=== PATIENT | male | born 1990 | race Caucasian/White ===

== ENCOUNTER 2020-03-31 09:48 | Day surgery (SDC) | payer SELFPAY ==
[2020-03-31] VITALS (9 sets, daily range): BP systolic 98–132; BP diastolic 58–89
[~2020-03-31] VITALS: Ht 175 cm; Wt 77.0 kg
[2020-03-31] MEDS ORDERED: GLUCAGON EMERGENCY 1 MG/KIT IV ONE ×2 (10:00→10:45)
--- NOTE | 2020-03-31 10:06 | ED GI ---
General Chief Complaint: Foreign Body Stated Complaint: FOREIGN OBJECT IN THROAT Source of Information: Patient History of Present Illness Date Seen by Provider: Mar 31, 2020 Time Seen by Provider: 09:49 Initial Comments PT ARRIVES VIA POV FROM [facility] PT STATES HE WAS EATING TURKEY DOGS LAST NIGHT AROUND [phone] AND HAS HAD IT STUCK IN HIS "THROAT" SINCE THEN WATER WON'T GO DOWN PT IS ABLE TO SWALLOW SALIVA, BUT NOTHING ELSE NO PAIN, EXCEPT WHEN HE TRIES TO SWALLOW ANYTHING, AND THEN HAS PAIN IN HIS LOWER THROAT/UPPER CHEST AREA STATES HE HAS HAD SOME VERY MINOR EPISODES OF FOOD GETTING STUCK, BUT RESOLVES AFTER A COUPLE OF SECONDS AND HAS NEVER SOUGHT CARE FOR THIS PROBLEM NO COUGH OR DIFFICULTY BREATHING OR WHEEZING NO MEDICAL PROBLEMS AND DOES NOT TAKE ANY MEDICATIONS PCP: NONE Allergies and Home Medications Allergies Coded Allergies: No Known Drug Allergies (Unverified , 03/31/20) Home Medications No Active Prescriptions or Reported Meds Patient Home Medication List Home Medication List Reviewed: Yes Review of Systems Review of Systems Constitutional: no symptoms reported EENTM: See HPI Respiratory: No Symptoms Reported; Denies Cough, Denies Shortness of Air Cardiovascular: No Symptoms Reported Gastrointestinal: See HPI Past Brbiqbg-Vbptoy-Sxnzwj Hx Past Med/Social Hx: Reviewed and Corrections made Patient Social History Alcohol Use: Occasionally Uses Recreational Drug Use: No Smoking Status: Never a Smoker Recent Foreign Travel: No Contact w/Someone Who Travel: No Past Medical History Surgeries: No Respiratory: No Cardiac: No Neurological: No Genitourinary: No Gastrointestinal: No Musculoskeletal: No Endocrine: No HEENT: No Cancer: No Psychosocial: No Integumentary: No Blood Disorders: No Physical Exam Vital Signs Vital Signs - First Documented 03/31/20 09:50 Temp 37.0 Pulse 95 Resp 16 B/P (MAP) 150/87 (108) Pulse Ox 98 O2 Delivery Room Air Capillary Refill : Height/Weight/BMI Height: '" Weight: lbs. oz. kg; BMI Method: General Appearance: WD/WN, no apparent distress HEENT: PERRL/EOMI, normal ENT inspection, pharynx normal Neck: normal inspection Respiratory: normal breath sounds, no respiratory distress, no accessory muscle use Cardiovascular: regular rate, rhythm, no murmur Gastrointestinal: normal bowel sounds, non tender, soft Neurologic/Psychiatric: no motor/sensory deficits, alert, normal mood/affect, oriented x 3 Skin: normal color, warm/dry Progress/Results/Core Measures Results/Orders My Orders Orders - MARY BROWN DO Ed Iv/Invasive Line Start (03/31/20 09:55) Chest Pa/Lat (2 View) (03/31/20 09:55) Glucagon Emergency Kit (Glucagon Emergen (03/31/20 10:00) Glucagon Emergency Kit (Glucagon Emergen (03/31/20 10:45) Ed Iv/Invasive Line Start (03/31/20 11:34) Lactated Ringers (Lr 1000 Ml Iv Solution (03/31/20 11:34) Medications Given in ED Current Medications Medications Dose Ordered Sig/[place] Route Start Time Stop Time Status Last Admin Dose Admin Glucagon 1 mg ONCE ONCE IV 03/31/20 10:00 03/31/20 10:01 DC 03/31/20 10:12 1 MG Glucagon 1 mg ONCE ONCE IV 03/31/20 10:45 03/31/20 10:46 DC 03/31/20 10:40 1 MG Vital Signs/I&O 03/31/20 09:50 Temp 37.0 Pulse 95 Resp 16 B/P (MAP) 150/87 (108) Pulse Ox 98 O2 Delivery Room Air Progress Progress Note : Progress Note PT ABLE TO SWALLOW SALIVA, BUT UNABLE TO SWALLOW EVEN SIPS OF WATER--COMES BACK UP IMMEDIATELY GIVEN GLUCAGON X 2 DOSES WITH OUT IMPROVEMENT Diagnostic Imaging Comments CXR--NO ACUTE PROCESS, PER RADIOLOGIST REPORT AT 1015 Reviewed: Reviewed by Me Departure Communication (Admissions) 0959--CALLED DR. CONNELL--MESSAGE TO HIM VIA STAFF MEMBER. HE ADVISES TO GIVE GLUCAGON 1104--CALLED DR. CONNELL--MESSAGE TO HIM VIA STAFF MEMBER, HE ADVISES ADMIT TO FLOOR. MEDICATION ORDERS NOTED. 1130--DR. HARVEY WILL BE IN TO SEE PT AND TAKE TO ENDOSCOPY. 1135--DR. HARVEY HERE, CARE TURNED OVER TO HIM Impression Primary Impression: Esophageal obstruction due to food impaction Disposition: ADMITTED INPATIENT (TO ENDOSCOPY) Condition: Stable Admissions Decision to Admit Reason: Admit from ER (General) (TO ENDOSCOPY) Decision to Admit/Date: Mar 31, 2020 Time/Decision to Admit Time: 11:05 Departure-Patient Inst. Scripts No Active Prescriptions or Reported Meds MARY BROWN DO Mar 31, 2020 10:06
--- NOTE | 2020-03-31 10:12 | Diagnostic Imaging Report ---
Indication: Dysphagia PA and lateral chest Heart size and pulmonary vascularity are normal. Lungs are clear. There are no effusions or pneumothoraces. IMPRESSION: Negative chest Dictated by: Dictated on workstation # [id number]
--- NOTE | 2020-03-31 11:06 | NUR ---
PT UNABLE TO KEEP WATER DOWN AFTER 2ND DOSE OF GLUCAGON.
[2020-03-31] MEDS ORDERED: LACTATED RINGERS 1,000 ML IV ONE (11:34)
--- NOTE | 2020-03-31 11:37 | NUR ---
DR HARVEY HERE TO SEE PT.
--- NOTE | 2020-03-31 12:01 | NUR ---
ANESTHESIA HERE TO SEE PT.
[2020-03-31] MEDS ORDERED: DEXAMETHASONE 10 MG/ML (DECADRON) 1 ML VIAL ONE (12:25)
[2020-03-31] MEDS ORDERED: ONDANSETRON 4 MG/2 ML (SDV) Z0FRAN ONE (12:25)
[2020-03-31] MEDS ORDERED: LIDOCAINE PF 2% 5 ML (XYLOCAINE) VIAL ONE (12:25)
[2020-03-31] MEDS ORDERED: proPOfol 200 MG/20 ML (DIPRIVAN) VIAL IV ONE (12:25)
[2020-03-31] MEDS ORDERED: MIDAZOLAM 2 MG/2 ML (VERSED) VIAL ONE (12:26)
[2020-03-31] MEDS ORDERED: ROCURONIUM 10 MG/ML 5 ML SYRINGE IV ONE (12:26)
[2020-03-31] MEDS ORDERED: fentaNYL INJECTION 100 MCG/2 ML AMP ONE (12:26)
--- NOTE | 2020-03-31 12:31 | History & Physical-Surgical ---
History of Present Illness History of Present Illness Reason for visit/HPI CC: food bolus seen and evaluated in ED. Patient is a 29 year old male that was eating turkey hot dogs last night and had food lodged in esophagus. Can not get anything to pass including liquids. He throws them up after attempting. Nothing makes better. Trying to drink something makes worse he throws it up. Not really having any chest or abdomen discomfort. Patient states had previous difficulty at times but only lasted a minute and would pass the food through esophagus. Never had endoscopy before. Denies fever sweats chills shortness of breath or chest pain. Date of Admission T Date Seen by a Provider: Mar 31, 2020 Time Seen by a Provider: 12:27 I consulted on this patient on 03/31/20 12:25 Attending Physician Ledy Ashley DO Admitting Physician No,Local Physician Consult Allergies and Home Medications Allergies Coded Allergies: No Known Drug Allergies (Unverified , 03/31/20) Home Medications No Active Prescriptions or Reported Meds Patient Home Medication List Home Medication List Reviewed: Yes Past Ustaivv-Gmcziy-Womicr Hx Patient Social History Alcohol Use: Occasionally Uses Recreational Drug Use: No Smoking Status: Never a Smoker Recent Foreign Travel: No Contact w/Someone Who Travel: No Recent Infectious Disease Expo: No Recent Hopitalizations: No Seasonal Allergies Seasonal Allergies: No Surgeries History of Surgeries: No Respiratory History of Respiratory Disorde: No Cardiovascular History of Cardiac Disorders: No Neurological History of Neurological Disord: No Genitourinary History of Genitourinary Disor: No Gastrointestinal History of Gastrointestinal Di: No Musculoskeletal History of Musculoskeletal Dis: No Endocrine History of Endocrine Disorders: No HEENT History of HEENT Disorders: No Cancer History of Cancer: No Psychosocial History of Psychiatric Problem: No Integumentary History of Skin or Integumenta: No Blood Transfusions History of Blood Disorders: No Reviewed Nursing Assessment Reviewed/Agree w Nursing PMH: Yes Family Medical History Significant Family History: No Pertinent Family Hx Review of Systems Constitutional: No chills, No diaphoresis, No fever EENTM: no symptoms reported; No hearing loss, No ear pain Respiratory: No cough, No dyspnea on exertion Cardiovascular: no symptoms reported Gastrointestinal: see HPI; No abdominal pain; nausea, vomiting Genitourinary: No decreased output, No discharge Musculoskeletal: no symptoms reported; No back pain, No joint pain Skin: No change in color, No change in hair/nails Psychiatric/Neurological: Denies Anxiety, Denies Depressed, Denies Emotional Problems All Other Systems Reviewed Negative Unless Noted: Yes (Negative excepted noted.) Physical Exam Vital Signs Vital Signs - First Documented 03/31/20 09:50 Temp 37.0 Pulse 95 Resp 16 B/P (MAP) 150/87 (108) Pulse Ox 98 O2 Delivery Room Air Capillary Refill : Less Than 3 Seconds Height, Weight, BMI Height: '" Weight: lbs. oz. kg; 25.00 BMI Method: General Appearance: WD/WN, Other (uncomfortable) HEENT: PERRL/EOMI, Normal ENT Inspection Neck: Normal Inspection, Non Tender, Supple Respiratory: Chest Non Tender, No Accessory Muscle Use, No Respiratory Distress Cardiovascular: Regular Rate, Rhythm, No Edema Gastrointestinal: Non Tender, Soft; No Distended, No Guarding Rectal: Deferred Back: Normal Inspection, No CVA Tenderness Extremity: Normal Capillary Refill, Normal Range of Motion Neurologic/Psychiatric: Alert, Oriented x3, No Motor/Sensory Deficits, Normal Mood/Affect, choir leader II-XII Norm as Tested Skin: Normal Color, Warm/Dry Lymphatic: No Adenopathy Assessment/Plan Assessment/Plan Admission Diagonsis Food bolus esophagus nausea and vomiting Admission Status: Other (Same Day Surgery) Assessment/Plan Food bolus esophagus causing obstruction nausea and vomiting Patient explained risks and benefits of EGD he understands risks and benefits and wishes to proceed to OR for EGD> LEDY ASHLEY DO Mar 31, 2020 12:31
[2020-03-31] MEDS ORDERED: SUCCINYLCHOLINE INJ 100 MG/5 ML SYR ONE (12:35)
--- NOTE | 2020-03-31 13:01 | NUR ---
JESSIE NERI FROM [facility] HERE TO GET PT.
[2020-03-31] MEDS ORDERED: SEVOFLURANE (ULTANE) 15 ML INHAL SOLN ONE (13:37)
[2020-03-31] MEDS ORDERED: FAMO-119 PO (13:52)
--- NOTE | 2020-03-31 13:54 | Discharge Inst-Simple/Standard ---
Discharge Inst-Standard Discharge Medications New, Converted or Re-Newed RX: Transmitted to Pharmacy Patient Instructions/Follow Up Plan of Care/Instructions/FU: 2 weeks Dion Activity as Tolerated: Yes Discharge Diet: Regular Diet (soft diet then advance to regular over 2 days.) Other Inst to Patient Follow up Appt: Make appointment for 2 week. Instructions: Chew all food, slowly advance diet over next two days. Symptoms to Report: Appetite Changes, Extremity Discoloration, Numbness/Tingling, Swelling Increased, Bleeding Excessive, Eyesight Changes, Pain Increased, Urine Color Change, Constipation(Persistent), Fever over 101 degree F, Pain/Pressure in chest, Urinating Difficulty, Cough Up/Vomit Blood, Heart Beat Irreg/Pounding, Pain/Pressure in jaw, Vaginal Bleeding Increase, Cramps in feet or legs, Lightheadedness, Pain/Pressure in shoulder, Diarrhea(Persistent), Memory Changes Suddenly, Questions/Concerns, Weight gain consecutive days, Dizziness/Fainting, Nausea/Vomiting, Shortness of Breath, Weight gain over 2 pounds If questions or concerns contact your physician Or seek help at emergency department. LEDY HARVEY DO Mar 31, 2020 13:54
--- NOTE | 2020-03-31 13:55 | Progress Note-Post Operative ---
Post-Operative Progess Note Surgeon (s)/Child Care Supervisor (s) Surgeon LEDY HARVEY DO Child Care Supervisor: na Pre-Operative Diagnosis esophageal obstruction food bolus Post-Operative Diagnosis same Procedure & Operative Findings Date of Procedure 03/31/20 Procedure Performed/Findings egd c removal of esophageal food obstruction Anesthesia Type gen Estimated Blood Loss Estimated blood loss (mL): none Specimens/Packing Specimens Removed na LEDY HARVEY DO Mar 31, 2020 13:55
--- NOTE | 2020-03-31 15:09 | OPERATIVE REPORT ---
DATE OF SERVICE: 03/31/2020 PREOPERATIVE DIAGNOSIS: Esophageal food bolus causing esophageal obstruction. POSTOPERATIVE DIAGNOSIS: Esophageal food bolus causing esophageal obstruction. PROCEDURE: EGD with removal of food bolus. SURGEON: Ledy Ashley DO ANESTHESIA: General. ESTIMATED BLOOD LOSS: None. COMPLICATIONS: None. INDICATIONS: The patient is a 29-year-old male with eating hot dog yesterday, which got lodged in the distal esophagus. He has been throwing up and cannot keep anything down. He was explained risks and benefits of procedure and wished to proceed with procedure. Consent was signed in the chart. DESCRIPTION OF PROCEDURE: The patient was taken to the endoscopy suite, placed in supine position. He was intubated. Timeout was performed. Scope was inserted in mouth, down the esophagus and encountered a large chunk of hot dog. A Nuno Net was able to be advanced and was used to grab, placed the hot dog within it and was able to be evacuated. Scope was then reinserted in mouth, down the esophagus into the stomach and into the duodenum without difficulty. There were no polyps, masses or ulcerations within the duodenum. Scope was slowly retracted back into the stomach where it was further insufflated. No polyps, masses or ulcerations. Scope was retroflexed noting no other pathology. Scope was returned to its normal position, slowly withdrawn to the distal esophagus. No stricture evident. Scope and retracted without any difficulty. There are some slight erythematous changes around the distal portion of the esophagus likely due to pressure of the food bolus. Scope was then slowly retracted back until completely removed noting no other pathology. The patient tolerated procedure well without any complications. He was taken to recovery room in stable condition. RECOMMENDATIONS: The patient will be started on Pepcid 20 mg twice a day. He will follow up in the office in 2 weeks. Any issues before that be seen at that time. The patient was instructed to slowly increase diet as he tolerates over the next couple days. Job ID: [id number] DocumentID: [id number] Dictated Date: 03/31/2020 14:47:56 Supervisor [employer]ers Date: 03/31/2020 15:08:12 Dictated By: LEDY ASHLEY DO
== END 2020-03-31 15:35 | disposition home or self-care (01) ==
LOC: ER 09:49 → ENDO 11:41
PROVIDERS: ATTEND Surgery
DX: T18.128A Food in esophagus causing other injury, initial encounter (principal); K22.2 Esophageal obstruction; Z20.828 Contact with and (suspected) exposure to other viral communicable diseases
CPT/HCPCS: 43247; 71046; 87081; 99285; U0002; 87635; 96361; 96374

== ENCOUNTER → 2020-05-13 | Outpatient (CLI) | payer OTHER ==
[~2020-05-13] MED LIST: BARIUM for suspension 96% w/w (Vanilla Silq Medium Density) PO ONE; BARIUM for suspension 98% w/w (Vanilla Silq High Density) PO ONE; FAMO-119 PO
--- NOTE | 2020-05-13 10:59 | Diagnostic Imaging Report ---
INDICATION: Dysphagia. Patient had recent episode of food bolus being stuck in the esophagus with endoscopic retrieval. This study is performed for further evaluation. Patient ingested effervescent crystals as well as thin and thick barium and imaging of the esophagus was performed. 1 minute 5 seconds fluoroscopic time was utilized. There is a smooth contour to the esophagus. No esophageal mass or stricture was identified. No hiatal hernia or gastroesophageal reflux was demonstrated. IMPRESSION: Unremarkable esophagram. Dictated by: Dictated on workstation # [id number]
== END ==
LOC: RAD 10:07
PROVIDERS: ATTEND Surgery
DX: R13.10 Dysphagia, unspecified (principal)
CPT/HCPCS: 74220

== ENCOUNTER 2022-10-15 21:01 | Emergency (ER) | payer OTHER ==
[~2022-10-15] VITALS: Ht 180.3 cm; Wt 99.8 kg
[~2022-10-15 21:01] MED LIST changes: -BARIUM for suspension 96% w/w (Vanilla Silq Medium Density) PO ONE; -BARIUM for suspension 98% w/w (Vanilla Silq High Density) PO ONE
--- NOTE | 2022-10-15 22:19 | ED EENT ---
History of Present Illness General Chief Complaint: Oral/Throat Problems Stated Complaint: FEELS SOMETHING STUCK IN THROAT Nursing Triage Note: Pt reports feeling like food is stuck in throat. Pt states he noticed it around 2000 tonight, last food eaten was grapes at approximately 1400. Pt reports that he can drink normally at this time. Pt states this has happened before, pt has drank oil one time (which helped) and was hospitalized once for it. Pt states he has followed up with his PCP about this and was advised to lose weight. History of Present Illness Date Seen by Provider: Oct 15, 2022 Time Seen by Provider: 21:10 Initial Comments Patient is a 32-year-old male who presents to the emergency department for evaluation of feeling like something is stuck in his throat. Patient states he noticed the symptoms began at around 8:00 tonight. He last ate some grapes at approximately 2 PM. He states he is able to drink without issue and is able to swallow his saliva. He also was able to eat some crackers. Patient states this happens frequently but usually he is able to rest and the symptoms resolve on their own. He did have to be hospitalized and have an EGD once in the past where a hotdog was noted to be stuck in his esophagus. Patient states he has followed up with his PCP about this in the past. Patient denies any chest pain, shortness of air, or fever. Allergies and Home Medications Allergies Coded Allergies: No Known Drug Allergies (Unverified , 03/31/20) Patient Home Medication List Home Medication List Reviewed: Yes Famotidine (Pepcid) 20 Mg Tablet, 20 MG PO BID Prescribed by: LEDY HARVEY on 03/31/20 9222 Review of Systems Review of Systems Constitutional: no symptoms reported Eyes: No Symptoms Reported Ears: No Symptoms Reported Nose: no symptoms reported Mouth: no symptoms reported Throat: see HPI Respiratory: no symptoms reported Cardiovascular: no symptoms reported Gastrointestinal: no symptoms reported Musculoskeletal: no symptoms reported Skin: no symptoms reported Neurological: No Symptoms Reported Hematologic/Lymphatic: No Symptoms Reported Immunological/Allergic: no symptoms reported Past Yjxduqp-Ztaqdb-Cxmdyi Hx Patient Social History Tobacco Use?: No Substance use?: No Alcohol Use?: Yes Alcohol Frequency: Once in a while Pt feels they are or have been: No Immunizations Up To Date Influenza Vaccine Up-to-Date: No; Not Current First/Initial COVID19 Vaccinat: unkn Second COVID19 Vaccination Vasyl: unkn Seasonal Allergies Seasonal Allergies: No Past Medical History Surgery/Hospitalization HX: Pt has hx of food bolus Surgeries: No Respiratory: No Cardiac: No Neurological: No Genitourinary: No Gastrointestinal: No Musculoskeletal: No Endocrine: No HEENT: No Cancer: No Psychosocial: No Integumentary: No Blood Disorders: No Family Medical History No Pertinent Family Hx Physical Exam Vital Signs Vital Signs - First Documented 10/15/22 21:06 Temp 36.9 Pulse 85 Resp 16 B/P (MAP) 157/102 (120) Pulse Ox 99 O2 Delivery Room Air Height, Weight, BMI Height: '" Weight: lbs. oz. kg; 30.00 BMI Method: General Appearance: WD/WN, no apparent distress Neck: non-tender, full range of motion, supple, normal inspection Cardiovascular: regular rate, rhythm Respiratory: chest non-tender, lungs clear, normal breath sounds, no respiratory distress, no accessory muscle use Gastrointestinal: normal bowel sounds, non tender, soft Neurologic/Psychiatric: no motor/sensory deficits, alert, normal mood/affect, oriented x 3 Skin: normal color, warm/dry Progress/Results/Core Measures Results/Orders Vital Signs/I&O Blood Pressure Mean: 120 Progress Progress Note : Progress Note Patient is nontoxic and well-hydrated on exam. No adventitious lung sounds or increased work of breathing noted. Abdominal exam is reassuring without focal provocation of pain. I spoke with Dr. Andres who states he is happy to admit the patient overnight and scope him in the morning. He states the patient is also welcome to go home and follow-up outpatient tomorrow in the office. I gave patient these options and patient desired to be discharged home and to follow-up on an outpatient basis tomorrow. Patient was given a soda which he drank briskly and this seemed to give him some intermittent relief but he states the symptoms did return shortly thereafter. Will discharge home with recommendations for supportive care follow-up with Dr. Andres tomorrow. Return precautions for urgent symptomology discussed. Patient verbalized understanding. Departure Impression Primary Impression: Globus sensation Additional Impression: Food impaction of esophagus Qualified Codes: T18.128A - Food in esophagus causing other injury, initial encounter Disposition: HOME, SELF-CARE Condition: Stable Departure-Patient Inst. Decision time for Depature: 22:30 Referrals: MILES OJEDA MD (PCP/Family) Primary Care Physician TOMASA ANDRES DO Patient Instructions: Food Obstruction Add. Discharge Instructions: Call Dr. Andres's office first thing tomorrow morning and they will give you an appointment to be evaluated. All discharge instructions reviewed with patient and/or family. Voiced understanding. EMILY SANTACRUZ DINING MANAGER Oct 15, 2022 22:19
[2022-10-15 22:48] VITALS: BP 146/99
== END 2022-10-15 22:46 | disposition home or self-care (01) ==
LOC: EDUNIT# 21:01 → ER 21:04
DX: T18.128A Food in esophagus causing other injury, initial encounter (principal)
CPT/HCPCS: 99283

== ENCOUNTER 2022-10-16 13:26 | Day surgery (SDC) | payer OTHER ==
[~2022-10-16] VITALS: Ht 180.3 cm; Wt 99.8 kg
[2022-10-16] VITALS (9 sets, daily range): BP systolic 102–133; BP diastolic 67–89
[2022-10-16] MEDS ORDERED: LACTATED RINGERS 1,000 ML IV STA (13:28)
[2022-10-16] MEDS ORDERED: HURRICAINE EXT TUBE (BENZOCAINE) XX PRN (13:30)
[2022-10-16] MEDS ORDERED: LACTATED RINGERS 1,000 ML IV ONE (13:41)
[2022-10-16] MEDS ORDERED: HURRICAINE EXT TUBE (BENZOCAINE) ONE (13:41)
[2022-10-16] MEDS ORDERED: SUCCINYLCHOLINE INJ 20 MG/1 ML 10 ML VIAL ONE (15:02)
[2022-10-16] MEDS ORDERED: MIDAZOLAM 2 MG/2 ML (VERSED) VIAL ONE (15:02)
[2022-10-16] MEDS ORDERED: ONDANSETRON 4 MG/2 ML (SDV) Z0FRAN ONE (15:02)
[2022-10-16] MEDS ORDERED: LIDOCAINE PF 2% 5 ML (XYLOCAINE) VIAL ONE (15:02)
[2022-10-16] MEDS ORDERED: fentaNYL INJ 100 MCG/2 ML AMP ONE (15:02)
[2022-10-16] MEDS ORDERED: proPOfol 200 MG/20 ML (DIPRIVAN) VIAL IV ONE (15:02)
[2022-10-16] MEDS ORDERED: SEVOFLURANE (ULTANE) 15 ML INHAL SOLN ONE (15:24)
--- NOTE | 2022-10-16 15:38 | Anesthesia-General Post-Op ---
General Patient Condition Mental Status/LOC: Same as Preop Cardiovascular: Satisfactory Nausea/Vomiting: Absent Respiratory: Satisfactory Pain: Controlled Complications: Absent Post Op Complications Complications None Follow Up Care/Instructions Patient Instructions None needed. Anesthesia/Patient Condition Patient Condition Patient is doing well, no complaints, stable vital signs, no apparent adverse anesthesia problems. No complications reported per nursing. RYAN HERNANDEZ CRNA Oct 16, 2022 15:38
--- NOTE | 2022-10-16 15:38 | Progress Note-Post Operative ---
Post-Operative Progess Note Surgeon (s)/Preschool Aide (s) Surgeon TOMASA ANDRES DO Preschool Aide: none Pre-Operative Diagnosis possible esophageal obstruction food bolus, dysphagia Post-Operative Diagnosis Gastritis - mild Small sliding hiatal hernia Procedure & Operative Findings Date of Procedure 10/16/22 Procedure Performed/Findings EGD with bx PROCEDURE NOTE: After informed consent was obtained, the patient was brought to the OR suite, placed in bed in left lateral decubitus position. He was intubated by the MANAGER RN CASE who then monitored vitals the entire time, heart rate, blood pressure and pulse ox and the scope was inserted down the mouth through the esophagus into the stomach. On the way down, did not find any food bolus or see any irritation or damage from something getting stuck in the esophagus. Pushed into the stomach, pushed past the antrum and into the duodenum. Duodenum looked good, took a picture and pulled back into the antrum. Mild gastritis seen here and did a biopsy of the antrum. Then retroflexed the scope, saw very small sliding hiatal hernia, took a picture of this and then pulled the scope into the GE junction. I took a picture of the GE junction and then did a biopsy of the GE junction. Pushed the scope back into the stomach, suctioned all the air out of the stomach. At this point pulled the scope up the esophagus, took a few pictures to prove that it looked normal and finally pulled the scope out of the mouth. The patient tolerated the procedure, and he recovered in PACU. Anesthesia Type GET Estimated Blood Loss Estimated blood loss (mL): scant Specimens/Packing Specimens Removed antral bx GE jxn bx TOMASA ANDRES DO Oct 16, 2022 15:38
--- NOTE | 2022-10-16 15:38 | Endoscopy Discharge Instruct ---
Endo Procedure/Findings Findings 1.: Gastritis 2.: Hiatal Hernia (very small) Discharge Instructions - Activity: You might feel a little sleepy until tomorrow. This is due to the medicine you received to relax you. Until tomorrow, you should: NOT drive a car, operate machinery or power tools. NOT drink any alcoholic beverages. NOT make any important decisions or sign importortant papers. Do not return to work until tomorrow, unless otherwise instructed. Resume previous activities tomorrow. Diet: Start by taking liquids. If you tolerate liquids, advance to solid food. 1.: EGD in 3 years Notify Physician - If you experience excessive bleeding, unusual abdominal pain, fever, or chest pain, contact your doctor immediately. TOMASA ANDRES DO Oct 16, 2022 15:38
[2022-10-16] MEDS ORDERED: MEPERIDINE (DEMEROL) INJ 50 MG/ML IVP ONE (15:45)
[2022-10-16] MEDS ORDERED: morphine INJ 10 MG/ML 1ML (SYR OR VIAL) IVP ONE (15:45)
[2022-10-16] MEDS ORDERED: ONDANSETRON 4 MG/2 ML (SDV) Z0FRAN IVP PRN (15:45)
== END 2022-10-16 16:52 | disposition home or self-care (01) ==
LOC: ENDO 13:26
PROVIDERS: ATTEND Surgery
DX: K29.70 Gastritis, unspecified, without bleeding (principal); K44.9 Diaphragmatic hernia without obstruction or gangrene; K31.89 Other diseases of stomach and duodenum; K21.00 Gastro-esophageal reflux disease with esophagitis, without bleeding; E66.9 Obesity, unspecified; Z68.30 Body mass index [BMI] 30.0-30.9, adult; Z28.310 Unvaccinated for COVID-19

== ENCOUNTER → 2023-02-15 | Outpatient (CLI) | payer OTHER ==
--- NOTE | 2023-02-15 11:30 | Diagnostic Imaging Report ---
Indication: Globus sensation. Study was performed in conjunction with speech pathology. Video fluoroscopy was performed during swallowing of barium at multiple consistencies. Total of 0.6 minutes of fluoroscopic time was utilized. Patient ingested thin as well as puree and solid consistencies. Oral phase is unremarkable. There is normal epiglottic tilt and laryngeal elevation. There was a single episode of flash penetration during swallowing a large volume of thin liquid. Otherwise all swallows appeared normal. No aspiration was observed. There is no residue detected. IMPRESSION: Essentially unremarkable modified barium swallow. Dictated by: Dictated on workstation # [id number]
== END ==
LOC: RAD 10:22
PROVIDERS: ATTEND Surgery
DX: R13.10 Dysphagia, unspecified (principal)
CPT/HCPCS: 74230